=== PATIENT | male | born 1950 ===

== ENCOUNTER 2022-08-02 08:28 | Day surgery (SDC) | payer MEDICARE ==
[2022-08-01 11:10] VITALS: BMI 41.6
[2022-08-02] MEDS ORDERED: Famotidine/PF 20 mg/2ml Vial ONE (09:41)
[2022-08-02] MEDS ORDERED: PROPOFOL 200 MG/20 ML VIAL ONE (11:21)
[2022-08-02] MEDS ORDERED: Lidocaine 1% PF 5 ML VIAL ONE (11:21)
[2022-08-02] MEDS ORDERED: Midazolam HCl 2 mg/2 ml Vial ONE (11:23)
== END 2022-08-02 12:33 | disposition home or self-care (01) ==
LOC: SDC 08:28
PROVIDERS: ATTEND Internal Medicine
PROC: 0DB78ZX Excision of Stomach, Pylorus, Via Natural or Artificial Opening Endoscopic, Diagnostic (ICD-10-PCS; principal; 2022-08-02)
DX: K29.50 Unspecified chronic gastritis without bleeding (principal); F45.8 Other somatoform disorders; K21.9 Gastro-esophageal reflux disease without esophagitis; I10 Essential (primary) hypertension; E78.5 Hyperlipidemia, unspecified; I48.91 Unspecified atrial fibrillation; G47.30 Sleep apnea, unspecified; B00.9 Herpesviral infection, unspecified; E66.01 Morbid (severe) obesity due to excess calories; Z68.41 Body mass index [BMI] 40.0-44.9, adult; Z87.891 Personal history of nicotine dependence; Z79.01 Long term (current) use of anticoagulants; Z79.899 Other long term (current) drug therapy; Z88.0 Allergy status to penicillin
CPT/HCPCS: 88305; J2250; J2704; S0028